=== PATIENT | female | born 1965 | race Caucasian/White ===

== ENCOUNTER → 2016-08-17 | Outpatient (CLI) | payer MEDICAID ==
--- NOTE | 2016-08-17 15:46 | DX ---
PA and Lateral Chest August 17, 2016 Indication: Cough. Evaluate for pneumonia. Comparison: Two-view chest dated March 05, 2014 and cervical spine series dated March 30, 2015. Findings: Lungs have moderate diffuse peribronchial thickening. No edema, airspace consolidation, or effusion. The heart size is normal. The effusions construct overlying the low cervical spine is uncha nged since 2014. Impression: Bronchitis. No pneumonia. Comment: Results were called to Dr. Steve's [employer] 's voicemail at 3:40 p.m. August 17, 2016.
== END ==
LOC: FIMAGING 14:48
PROVIDERS: ATTEND Family Medicine
DX: J40 Bronchitis, not specified as acute or chronic (principal)

== ENCOUNTER 2016-11-07 12:47 | Day surgery (SDC) | payer MEDICAID ==
[2016-11-07] MEDS ORDERED: LIDOCAINE 1% 2 ML INJ ONE (13:20)
[2016-11-07] MEDS ORDERED: MIDAZOLAM 2 MG/2 ML VIAL ONE (13:45)
[2016-11-07] MEDS ORDERED: PROPOFOL 200 MG/20 ML VIAL ONE ×2 (13:45)
[2016-11-07] MEDS ORDERED: LIDOCAINE 2% 5 ML SDV ONE (13:58)
--- NOTE | 2016-11-07 14:27 | GPN ---
[f rep st] PROCEDURE NOTE PROCEDURE: Colonoscopy. INDICATIONS: The patient is a 51-year-old female, presents for routine colon cancer screening. DESCRIPTION OF PROCEDURE: After proper consent was obtained, the patient was placed in the left lat eral decubitus position, received IV general anesthesia due to her ASA class of III. Video colonoscope was introduced through the anus and rectum, up the left colon, across the transver se colon, down the right colon and the cecum. Findings as follows: Normal colonoscopic exam. No polyps, tumors or lesions noted. At this point, instrument was removed. Patient tolerated the procedure well and was returned to the recovery room in stable condition. RECOMMENDATIONS: The patient's next colon cancer screening can be in 10 years' time. Copy requested to: TERESA Huerta /[id number]/[id number]
== END 2016-11-07 16:00 | disposition home or self-care (01) ==
LOC: FSGY 12:47
PROVIDERS: ATTEND Internal Medicine Gastroenterology
PROC: 0DJD8ZZ Inspection of Lower Intestinal Tract, Via Natural or Artificial Opening Endoscopic (ICD-10-PCS; principal; 2016-11-07 13:45)
DX: Z12.11 Encounter for screening for malignant neoplasm of colon (principal)
CPT/HCPCS: J2250; J2704

== ENCOUNTER → 2017-01-24 | Outpatient (CLI) | payer MEDICAID | LOC: FIMAGING 15:45 | PROVIDERS: ATTEND Physician Assistant Surgical | DX: Z09 Encounter for follow-up examination after completed treatment for conditions other than malignant neoplasm (principal); Z98.1 Arthrodesis status ==

== ENCOUNTER → 2017-04-05 | Outpatient (CLI) | payer MEDICAID | LOC: BMCIMAGING 12:42 | PROVIDERS: ATTEND Physician Assistant | DX: Z12.31 Encounter for screening mammogram for malignant neoplasm of breast (principal) | CPT/HCPCS: G0202 ==